=== PATIENT | female | born 1995 | race Caucasian/White ===

== ENCOUNTER 2017-08-07 01:29 | Emergency (ER) | payer OTHER ==
[~2017-08-07] VITALS: Ht 167.6 cm; Wt 72.6 kg
[~2017-08-07 01:29] MED LIST: BENADRYL25 MG PO; BIRTH CONTROL; DOXYCYCLINE 10100 MG; FLEXERIL PO; IBUPROFEN 800800 M1 PO; MEDROLDOSEPACK PO; NAPROSYN250 MG PO; PEPCID AC20 M1; PEPCID AC20 M1 PO; PREDNISONE 20 M20 MG PO; TRIAMCINOLONE A80 GM TOP; VISTARIL50 MG; ZPAK PO
[2017-08-07 01:37] VITALS: BP 122/69
== END 2017-08-07 02:09 | disposition home or self-care (01) ==
LOC: M.ERS 01:29
DX: B30.9 Viral conjunctivitis, unspecified (principal); Z88.0 Allergy status to penicillin